=== PATIENT | male | born 1965 | race Caucasian/White ===

== ENCOUNTER 2017-07-05 21:21 | Emergency (ER) | payer SELFPAY ==
[~2017-07-05] VITALS: Ht 177.8 cm; Wt 75.0 kg
[2017-07-05 21:25] VITALS: BP 123/66; PULSE 93; RESP 18; TEMP 98.6; O2SAT 96
[2017-07-05] MEDS ORDERED: TETANUS/DIPHTHERIA TOXOID ADULT 0.5 ML VIAL IM ONE ×2 (22:15)
[2017-07-05] MEDS ORDERED: LIDOCAINE 1%/EPINEPHrine 1:100,000 SOLN 50 ML VIAL INFIL ONE ×2 (22:15)
--- NOTE | 2017-07-05 22:16 | PD ---
HPI Chief Complaint: Laceration/Skin Injury Time Seen by Provider: 22:01 Travel History International Travel<30 days: No Contact w/Intl Traveler<30days: No Traveled to known affect area: No History of Present Illness HPI 52-year-old white male presents to emergency department by POV for evaluation of lacerations to both knees. He was in the bathtub prior to arrival when a mirror fell off the wall onto his legs cutting his knees. Pain is mild. He denies any numbness or tingling. Symptoms are worsened with movement. No alleviating factors. Not up-to-date with immunizations. PFSH Past Medical History Narrative Medical Kidney disease Immunizations Current: Yes Tetanus Vaccination: > 5 Years Influenza Vaccination: Yes Past Surgical History Narrative Surgical NEPHRECTOMY Social History Alcohol Use: Yes (4-PACK DAILY) Tobacco Use: Yes (1/2 PPD) Substance Use: No Allergies-Medications (Allergen,Severity, Reaction): Coded Allergies: latex (Unverified Allergy, Intermediate, HIVES, 07/05/17) aspirin (Unverified Adverse Reaction, Intermediate, Cramping, 07/05/17) Reported Meds & Prescriptions Reported Meds & Active Scripts Active No Active Prescriptions or Reported Medications Review of Systems General / Constitutional: No: Fever Eyes: No: Visual changes HENT: No: Headaches Cardiovascular: No: Chest Pain or Discomfort Respiratory: No: Shortness of Breath Gastrointestinal: No: Abdominal Pain Genitourinary: No: Dysuria Musculoskeletal: Positive: Arthralgias, Pain, No: Myalgias, Limited ROM, Edema Skin: No Rash Neurologic: No: Weakness Psychiatric: No: Depression Endocrine: No: Polydipsia Hematologic/Lymphatic: No: Easy Bruising Physical Exam Narrative GENERAL: Well-developed, well-nourished in no apparent distress. Nontoxic appearing. HEAD: Normocephalic, atraumatic. EYES: Pupils equal round and reactive. Extraocular motions intact. No scleral icterus. No injection or drainage. ENT: Nose clear. Throat without erythema, tonsillar hypertrophy or exudate. Uvula midline. Airway patent. NECK: Trachea midline. Supple, nontender, moves head freely. No central bony tenderness or spasm. CARDIOVASCULAR: Regular rate and rhythm without murmurs, gallops, or rubs. RESPIRATORY: Clear to auscultation. Breath sounds equal bilaterally. No wheezes , rales, or rhonchi. GASTROINTESTINAL: Abdomen soft, non-tender, nondistended. No hepato-splenomegaly , or palpable masses. No guarding. EXTREMITIES: No clubbing, cyanosis, or edema. No joint tenderness. BACK: Nontender without deformity. No flank tenderness. Patient has lacerations over both patellas. They do not appear to be into the joint. Patient's neurovascular intact distally. NEUROLOGICAL: Awake, alert and oriented x 3 .Cranial nerves grossly intact. Motor and sensory grossly within normal limits. Normal speech. Data Data Last Documented VS Vital Signs Date Time Temp Pulse Resp B/P (MAP) Pulse Ox O2 Delivery O2 Flow Rate FiO2 07/05/17 21:25 98.6 93 18 123/66 (85) 96 Room Air Orders Orders Tetanus/Diphtheria Tox Adult (Tetanus/Di (07/05/17 22:15) Lidocai-Epi 1%-1:100,000 Inj (Xylocaine- (07/05/17 22:15) Ed Discharge Order (07/05/17 22:42) MDM Medical Decision Making Medical Screen Exam Complete: Yes Emergency Medical Condition: Yes Medical Record Reviewed: Yes Differential Diagnosis MDM: High Differential diagnoses: Fracture, sprain, strain, dislocation, contusion, neurovascular injury Narrative Course Patient's tetanus status updated. Patient's lacerations are closed with sutures. Procedures Procedure Narrative LACERATION LOCATION: Right knee LENGTH: 3 cm NUMBER OF STITCHES/MINNA: 4 REPAIR: The area of the laceration was prepped with Betadine and sterilely draped. The laceration was infiltrated with 1% lidocaine with epinephrine. The wound was copiously irrigated and explored without evidence of foreign body , tendon injury or neurovascular injury. The wound was closed using 4-0 proline. This was a simple single layer repair. A sterile dressing was applied. The patient was advised to keep the dressing clean and dry. Patient tolerated the procedure well. LACERATION LOCATION: Right knee LENGTH: 5 cm NUMBER OF STITCHES/MINNA: 9 REPAIR: The area of the laceration was prepped with Betadine and sterilely draped. The laceration was infiltrated with 1% lidocaine with epinephrine. The wound was copiously irrigated and explored without evidence of foreign body , tendon injury or neurovascular injury. The subcutaneous tissues are approximated using 4-0 Vicryl. The wound was closed using 4-0 proline. This was a simple single layer repair. A sterile dressing was applied. The patient was advised to keep the dressing clean and dry. Patient tolerated the procedure well. Diagnosis Primary Impression: bilateral knee lacerations Patient Instructions: General Instructions Departure Forms: Tests/Procedures, Work Release Special Instructions: No work 3 days. Additional Instructions: Rest. Elevation. Tylenol and Advil for pain. Daily wound care with soap, water, Neosporin. Sutures out in 12-14 days. Return to the ER if any problems. Med/Other Pt SpecificInfo: Wound Care Scripts No Active Prescriptions or Reported Meds Disposition: 01 DISCHARGE HOME Condition: Stable Alexi Kebede Jul 05, 2017 22:16
[2017-07-13] MEDS ORDERED: ULTR50TA5 PO ×2 (03:05)
[2017-07-13] MEDS ORDERED: CEPH-460 PO ×2 (03:05)
== END 2017-07-05 23:08 | disposition home or self-care (01) ==
LOC: NEPD 21:21
DX: S81.011A Laceration without foreign body, right knee, initial encounter (principal); S81.012A Laceration without foreign body, left knee, initial encounter; W20.8XXA Other cause of strike by thrown, projected or falling object, initial encounter; Y93.E1 Activity, personal bathing and showering
CPT/HCPCS: 12004

== ENCOUNTER 2017-07-13 01:50 | Emergency (ER) | payer SELFPAY ==
[2017-07-13 01:54] VITALS: BP 145/87; PULSE 85; RESP 16; TEMP 98.4; O2SAT 95
[2017-07-13] MEDS ORDERED: ONDANSETRON HCL 4 MG/2 ML VIAL IV PUSH ONE (02:15)
[2017-07-13] MEDS ORDERED: MORPHINE SULFATE 4 MG/ML INJ IV PUSH ONE (02:15)
[2017-07-13] MEDS ORDERED: ceFAZolin 2 GM PREMIX 50 ML IV ONE (02:30)
--- NOTE | 2017-07-13 02:58 | RADRPT ---
EXAM DATE/TIME: 07/13/2017 02:29 [facility] COMPARISON: No previous studies available for comparison. INDICATIONS : Patient had laceration to right knee one week ago from broken glass. Stiches were removed today just prior to imaging. New onset of pain and swelling today to anterior aspect of right knee. Evaluate for foreign body. MEDICAL HISTORY : None. SURGICAL HISTORY : None. ENCOUNTER: Initial ACUITY: 1 day PAIN SCORE: 10/10 LOCATION: Right Knee FINDINGS: Bones of the right knee are intact and normally aligned. No significant joint space narrowing seen. N o perceptible effusion. Marked prepatellar soft tissue swelling noted. There is some heterogeneous fluid in the prepatellar b ursa. I don't see a radiopaque foreign body. CONCLUSION: Radiographic findings would support prepatellar cellulitis and bursitis. No radiopaque foreign body. No acute bony or intra-articular abnormality demonstrated. Terrence Bailey MD on July 13, 2017 at 2:55 Board Certified Radiologist. This report was verified electronically.
[2017-07-13] MEDS ORDERED: TRAM50 PO (03:05)
[2017-07-13] MEDS ORDERED: CEPH-460 PO (03:05)
--- NOTE | 2017-07-13 03:08 | PD ---
HPI . Knee pain Chief Complaint: Skin Problem Time Seen by Provider: 02:04 Travel History International Travel<30 days: No Contact w/Intl Traveler<30days: No Traveled to known affect area: No History of Present Illness HPI This patient presents with a chief complaint of right knee pain. Onset was today. It has been getting progressively worse. He now rates the pain 10/10. The patient is status post laceration repair on 07/05. A mirror fell on his knees while he was in the bathtub. He states that the wounds were doing well until today. He doesn't really think that there is a retained foreign body. He denies any fever or any other systemic symptoms such as nausea. The wound has not been draining anything. He also has a laceration of the left knee which was sustained in the same incident. He reports no problems with that one. PFSH Past Medical History Medical History: Denies Significant Hx Immunizations Current: Yes Social History Alcohol Use: Yes (4-PACK DAILY) Tobacco Use: Yes (1/2 PPD) Substance Use: No Allergies-Medications (Allergen,Severity, Reaction): Coded Allergies: latex (Unverified Allergy, Intermediate, HIVES, 07/05/17) aspirin (Unverified Adverse Reaction, Intermediate, Cramping, 07/05/17) Reported Meds & Prescriptions Reported Meds & Active Scripts Active Ultram (Tramadol HCl) 50 Mg Tab 50 Mg PO Q4H PRN Keflex (Cephalexin) 500 Mg Cap 500 Mg PO Q8H Review of Systems Except as stated in HPI: all other systems reviewed are Neg General / Constitutional: No: Fever, Chills Gastrointestinal: No: Nausea, Vomiting Musculoskeletal: Positive: Pain (() Skin: Positive Change in Pigmentation Physical Exam Narrative GENERAL: Patient is awake and alert. He is moaning out. SKIN: The left knee laceration is well-healed with no drainage, redness, warmth or tenderness. The right knee laceration has some erythema and localized tenderness. No fluctuance or discharge. It is exquisitely tender. HEAD: Normocephalic/atraumatic. EYES: Pupils are equal. Extraocular movements are intact. NECK: Full range of motion without pain. CARDIOVASCULAR: Regular rate and rhythm. RESPIRATORY: Nonlabored respirations. MUSCULOSKELETAL: There is no knee effusion. There is no pain on movement of the patella. NEUROLOGICAL: Nonfocal. PSYCHIATRIC: Appropriate mood and affect. Data Data Last Documented VS Vital Signs Date Time Temp Pulse Resp B/P (MAP) Pulse Ox O2 Delivery O2 Flow Rate FiO2 07/13/17 03:13 07/13/17 01:54 98.4 85 16 95 Room Air Orders Orders Knee, Complete (4vws) (07/13/17 02:09) Complete Blood Count With Diff (07/13/17 02:09) Ed Poc Ultrasound (07/13/17 02:09) Morphine Inj (Morphine Inj) (07/13/17 02:15) Ondansetron Inj (Zofran Inj) (07/13/17 02:15) ^ Saline Lock (07/13/17 02:09) Cefazolin 2 Gm Premix (Ancef 2 Gm Premix (07/13/17 02:30) Labs Laboratory Tests Test 07/13/17 03:20 White Blood Count 10.2 TH/MM3 Red Blood Count 4.41 MIL/MM3 Hemoglobin 11.5 GM/DL Hematocrit 35.5 % Mean Corpuscular Volume 80.4 FL Mean Corpuscular Hemoglobin 26.1 PG Mean Corpuscular Hemoglobin Concent 32.5 % Red Cell Distribution Width 17.6 % Platelet Count 225 TH/MM3 Mean Platelet Volume 7.3 FL Neutrophils (%) (Auto) 67.8 % Lymphocytes (%) (Auto) 22.7 % Monocytes (%) (Auto) 5.9 % Eosinophils (%) (Auto) 2.9 % Basophils (%) (Auto) 0.7 % Neutrophils # (Auto) 6.9 TH/MM3 Lymphocytes # (Auto) 2.3 TH/MM3 Monocytes # (Auto) 0.6 TH/MM3 Eosinophils # (Auto) 0.3 TH/MM3 Basophils # (Auto) 0.1 TH/MM3 CBC Comment DIFF FINAL Differential Comment MDM Medical Decision Making Medical Screen Exam Complete: Yes Emergency Medical Condition: Yes Medical Record Reviewed: Yes (patient was seen here on 07/05 with bilateral knee lacerations. These were repaired. His tetanus was updated.) Differential Diagnosis My differential diagnosis includes but is not limited to localized wound infection, cellulitis, abscess Narrative Course This patient presents with the acute onset of pain with a one week old laceration of the right knee. No drainage. No fever. The sutures were removed. The wound did not dehisce. There was no drainage with suture removal. An x-ray was ordered to look for foreign body. I have also ordered a CBC. The patient's pain is being treated with morphine. He is being given Ancef for wound infection. X-ray>>Radiographic findings would support prepatellar cellulitis and bursitis. No radiopaque foreign body. No acute bony or intra-articular abnormality demonstrated. CBC Diagram 07/13/17 03:20 This patient will be discharged on Keflex. Procedures Procedure Narrative Emergency department soft-tissue/musculoskeletal ultrasound was performed with patient consent. Linear probe was used in the transverse and sagittal views in the area of interest without evidence of soft-tissue foreign bodies or abscess. Diagnosis Primary Impression: Wound infection Additional Impression: Prepatellar bursitis Qualified Codes: M70.41 - Prepatellar bursitis, right knee Patient Instructions: General Instructions, Wound Infection (DC) Med/Other Pt SpecificInfo: Prescription(s) given Scripts Tramadol (Ultram) 50 Mg Tab 50 MG PO Q4H Y for PAIN, #12 TAB 0 Refills Prov: Tessie Morales MD 07/13/17 Cephalexin (Keflex) 500 Mg Cap 500 MG PO Q8H for Infection, #30 CAP 0 Refills Prov: Tessie Morales MD 07/13/17 Disposition: 01 DISCHARGE HOME Condition: Stable Tessie Morales MD Jul 13, 2017 03:08
[2017-07-13 03:31] LABS: AUTOMATED NEUTROPHIL # 6.9 TH/MM3 (1.8-7.7); BASOPHIL # 0.1 TH/MM3 (0-0.2); BASOPHIL % 0.7 % (0.0-2.0); EOSINOPHIL # 0.3 TH/MM3 (0-0.4); EOSINOPHIL % 2.9 % (0.0-4.0); HEMATOCRIT 35.5 % (39.0-51.0); HEMO FLAGS DIFF FINAL; LYMPH % 22.7 % (9.0-44.0); LYMPHOCYTE # 2.3 TH/MM3 (1.0-4.8); MEAN CELL VOLUME 80.4 FL (80.0-100.0); MEAN CORPUSCULAR HEMOGLOBIN 26.1 PG (27.0-34.0); MEAN CORPUSCULAR HGB CONC 32.5 % (32.0-36.0); MONO % 5.9 % (0.0-8.0); NEUT % 67.8 % (16.0-70.0); PLATELET COUNT 225 TH/MM3 (150-450); RED BLOOD COUNT 4.41 MIL/MM3 (4.50-5.90); RED CELL DISTRIBUTION WIDTH 17.6 % (11.6-17.2); WHITE BLOOD COUNT 10.2 TH/MM3 (4.0-11.0)
[2017-07-16] MEDS ORDERED: BACT800T5 PO (10:17)
== END 2017-07-13 03:44 | disposition home or self-care (01) ==
LOC: NEPC 01:50
DX: M70.41 Prepatellar bursitis, right knee (principal); F17.200 Nicotine dependence, unspecified, uncomplicated; Z79.899 Other long term (current) drug therapy; Z88.6 Allergy status to analgesic agent; Z48.02 Encounter for removal of sutures
CPT/HCPCS: 73564; 85025; 96374; 96375; 99284; J0690; J2270; J2405

== ENCOUNTER 2017-07-14 15:37 | Inpatient (IN) | payer SELFPAY ==
[~2017-07-14] VITALS: Ht 177.8 cm; Wt 60.5 kg
[~2017-07-14 15:37] MED LIST: CEPH-460 PO; ULTR50TA5 PO
[2017-07-14 15:38] VITALS: BP 123/88; PULSE 71; RESP 16; TEMP 98.6; O2SAT 96
--- NOTE | 2017-07-14 18:21 | PD ---
HPI Chief Complaint: Skin Problem Time Seen by Provider: 18:08 Travel History International Travel<30 days: No Contact w/Intl Traveler<30days: No Traveled to known affect area: No History of Present Illness HPI 52-year-old male here for evaluation of right knee infection. On 07/05/31 the patient sustained bilateral knee lacerations from broken glass. Sutures were placed at that time in our emergency department. The patient returned on for possible infection to the right knee. At that time sutures were removed , and the patient was started on Keflex for cellulitis. He states that the area of erythema seems to be traveling up his right leg. He denies fevers or chills. He is having significant pain in his right knee which she describes as pressure, 8 out of 10, worse with movement and palpation, better with rest. PFSH Past Medical History Immunizations Current: Yes Social History Alcohol Use: Yes (4-PACK DAILY) Tobacco Use: Yes (1/2 PPD) Substance Use: No Allergies-Medications (Allergen,Severity, Reaction): Coded Allergies: latex (Unverified Allergy, Intermediate, HIVES, 07/14/17) aspirin (Unverified Adverse Reaction, Intermediate, Cramping, 07/14/17) Reported Meds & Prescriptions Reported Meds & Active Scripts Active Ultram (Tramadol HCl) 50 Mg Tab 50 Mg PO Q4H PRN Keflex (Cephalexin) 500 Mg Cap 500 Mg PO Q8H Review of Systems Except as stated in HPI: all other systems reviewed are Neg Physical Exam Narrative GENERAL: Well-developed, well-nourished, comfortable, no apparent distress. SKIN: Right anterior/medial knee with laceration that is healing with surrounding warmth and erythema with mild induration, no fluctuance with significant area of erythema traveling up the medial thigh. There is no crepitus. This area was evaluated using a linear ultrasound probe and shows cobblestoning which is consistent with cellulitis. No drainable fluid collections seen. No significant joint effusion seen in the right knee. HEAD: Atraumatic. Normocephalic. EYES: Pupils equal and round. No scleral icterus. No injection or drainage. ENT: No nasal bleeding or discharge. Mucous membranes pink and moist. NECK: Trachea midline. No JVD. CARDIOVASCULAR: Regular rate and rhythm. No murmur. Bilateral dorsalis pedis pulses are brisk and equal. RESPIRATORY: No accessory muscle use. Clear to auscultation. Breath sounds equal bilaterally. MUSCULOSKELETAL: Skin exam as above. Patient is able to flex his knee to 45 before he begins to feel pain over his anterior knee. Bilateral calves are supple and nontender. NEUROLOGICAL: Awake and alert. No obvious cranial nerve deficits. Motor grossly within normal limits. Normal speech. PSYCHIATRIC: Appropriate mood and affect; insight and judgment normal. Data Data Last Documented VS Vital Signs Date Time Temp Pulse Resp B/P (MAP) Pulse Ox O2 Delivery O2 Flow Rate FiO2 07/14/17 15:38 98.6 71 16 123/88 (100) 96 Orders Orders Complete Blood Count With Diff (07/14/17 18:16) Comprehensive Metabolic Panel (07/14/17 18:16) Prothrombin Time / Inr (Pt) (07/14/17 18:16) Act Partial Throm Time (Ptt) (07/14/17 18:16) Iv Access Insert/Monitor (07/14/17 18:16) Ecg Monitoring (07/14/17 18:16) Oximetry (07/14/17 18:16) Sodium Chloride 0.9% Flush (Ns Flush) (07/14/17 18:30) Blood Culture (07/14/17 18:16) Vancomycin Inj (Vancomycin Inj) (07/14/17 18:30) Morphine Inj (Morphine Inj) (07/14/17 18:30) Knee, Complete (4vws) (07/14/17 ) Westergren Sedimentation Rate (07/14/17 18:21) Diphenhydramine Inj (Benadryl Inj) (07/14/17 19:00) Labs Laboratory Tests Test 07/14/17 18:30 White Blood Count 9.6 TH/MM3 Red Blood Count 4.22 MIL/MM3 Hemoglobin 11.4 GM/DL Hematocrit 33.6 % Mean Corpuscular Volume 79.6 FL Mean Corpuscular Hemoglobin 26.9 PG Mean Corpuscular Hemoglobin Concent 33.8 % Red Cell Distribution Width 17.5 % Platelet Count 219 TH/MM3 Mean Platelet Volume 7.3 FL Neutrophils (%) (Auto) 69.0 % Lymphocytes (%) (Auto) 21.5 % Monocytes (%) (Auto) 6.8 % Eosinophils (%) (Auto) 2.2 % Basophils (%) (Auto) 0.5 % Neutrophils # (Auto) 6.6 TH/MM3 Lymphocytes # (Auto) 2.1 TH/MM3 Monocytes # (Auto) 0.7 TH/MM3 Eosinophils # (Auto) 0.2 TH/MM3 Basophils # (Auto) 0.1 TH/MM3 CBC Comment DIFF FINAL Differential Comment Prothrombin Time 9.7 SEC Prothromb Time International Ratio 0.9 RATIO Activated Partial Thromboplast Time 27.1 SEC Blood Urea Nitrogen 6 MG/DL Creatinine 0.77 MG/DL Random Glucose 81 MG/DL Total Protein 7.8 GM/DL Albumin 3.6 GM/DL Calcium Level 8.7 MG/DL Alkaline Phosphatase 84 U/L Aspartate Amino Transf (AST/SGOT) 20 U/L Alanine Aminotransferase (ALT/SGPT) 25 U/L Total Bilirubin 0.3 MG/DL Sodium Level 133 MEQ/L Potassium Level 3.9 MEQ/L Chloride Level 98 MEQ/L Carbon Dioxide Level 27.4 MEQ/L Anion Gap 8 MEQ/L Estimat Glomerular Filtration Rate 107 ML/MIN [facility] Medical Decision Making Medical Screen Exam Complete: Yes Emergency Medical Condition: Yes Differential Diagnosis Cellulitis, septic arthritis less likely, necrotizing fasciitis unlikely, lymphangitis, DVT unlikely Narrative Course Shortly after IV vancomycin was started the patient developed a red man syndrome with some erythema to his anterior neck and face. He denies respiratory difficulty. No tongue or lip swelling. Vancomycin infusion held, the patient was given Benadryl. When his symptoms resolve, the vancomycin infusion will be restarted at a slower rate. Vital signs reviewed and are within normal limits. CBC: WBC 9.6, hemoglobin 11.4, hematocrit 33.6, platelets 219. CMP is essentially unremarkable. Right knee x-ray interpreted by me shows no free air, no foreign body. The patient was given a dose of IV morphine as well as IV vancomycin. He is able to flex his knee to about 45 before he starts feeling a stretching/pain sensation in his anterior knee. Physical exam is not consistent with a septic arthritis, and is more consistent with cellulitis/infected bursitis. He also has signs of lymphangitis up the right leg. There is no crepitus on exam. Given failure of outpatient therapy, the patient be admitted for further antibiotic therapy. He is amenable to this plan. Case discussed with hospitalist Dr. Jesus who will admit the patient to her service. Diagnosis Primary Impression: Cellulitis of right knee Additional Impression: Lymphangitis Admitting Information Admitting Physician Requests: Observation Sina Hart MD Jul 14, 2017 18:21
[2017-07-14] MEDS ORDERED: MORPHINE SULFATE 4 MG/ML INJ IV PUSH ONE ×2 (18:30)
[2017-07-14] MEDS ORDERED: SODIUM CHLORIDE 0.9% FLUSH 10 ML FLUSH IV FLUSH PRN ×2 (18:30)
[2017-07-14] MEDS ORDERED: VANCOMYCIN INJ 1,000 MG in SODIUM CHLOR 0.9% 250 ML INJ 250 ML IV ONE ×4 (18:30)
[2017-07-14] MEDS ORDERED: diphenhydrAMINE HCL 50 MG/ML VIAL IV PUSH ONE ×2 (19:00)
[2017-07-14 19:15] LABS: AUTOMATED NEUTROPHIL # 6.6 TH/MM3 (1.8-7.7); BASOPHIL # 0.1 TH/MM3 (0-0.2); BASOPHIL % 0.5 % (0.0-2.0); EOSINOPHIL # 0.2 TH/MM3 (0-0.4); EOSINOPHIL % 2.2 % (0.0-4.0); HEMATOCRIT 33.6 % (39.0-51.0); HEMOGLOBIN 11.4 GM/DL (13.0-17.0); LYMPH % 21.5 % (9.0-44.0); LYMPHOCYTE # 2.1 TH/MM3 (1.0-4.8); MEAN CELL VOLUME 79.6 FL (80.0-100.0); MEAN CORPUSCULAR HEMOGLOBIN 26.9 PG (27.0-34.0); MEAN CORPUSCULAR HGB CONC 33.8 % (32.0-36.0); MEAN PLATELET VOLUME 7.3 FL (7.0-11.0); MONO % 6.8 % (0.0-8.0); MONOCYTE # 0.7 TH/MM3 (0-0.9); PLATELET COUNT 219 TH/MM3 (150-450); RED BLOOD COUNT 4.22 MIL/MM3 (4.50-5.90); RED CELL DISTRIBUTION WIDTH 17.5 % (11.6-17.2); WHITE BLOOD COUNT 9.6 TH/MM3 (4.0-11.0)
[2017-07-14 19:25] LABS: INTERNATIONAL NORMALIZED RATIO 0.9 RATIO; PROTHROMBIN TIME - PATIENT 9.7 SEC (9.8-11.6)
[2017-07-14 19:46] LABS: ALBUMIN 3.6 GM/DL (3.4-5.0); ALT (GPT) 25 U/L (12-78); AST (GOT) 20 U/L (15-37); BICARBONATE 27.4 MEQ/L (21.0-32.0); BLOOD UREA NITROGEN 6 MG/DL (7-18); CALCIUM 8.7 MG/DL (8.5-10.1); CHLORIDE 98 MEQ/L (98-107); CREATININE 0.77 MG/DL (0.60-1.30); GLOMERULAR FILTRATION RATE 107 ML/MIN (>89); GLUCOSE,RANDOM 81 MG/DL (74-106); SODIUM (NA) 133 MEQ/L (136-145)
[2017-07-14 19:48] LABS: ALKALINE PHOSPHATASE 84 U/L (45-117); TOTAL BILIRUBIN ADULT 0.3 MG/DL (0.2-1.0); TOTAL PROTEIN 7.8 GM/DL (6.4-8.2)
[2017-07-14] MEDS ORDERED: ACETAMINOPHEN 325 MG TAB PO PRN ×2 (20:45)
[2017-07-14] MEDS ORDERED: ONDANSETRON HCL 4 MG/2 ML VIAL IVP PRN ×2 (20:45)
[2017-07-14] MEDS ORDERED: NALOXONE HCL 0.4 MG/ML AMP IV PUSH PRN ×2 (20:45)
--- NOTE | 2017-07-14 21:37 | RADRPT ---
EXAM DATE/TIME: 07/14/2017 19:36 [facility] COMPARISON: KNEE RIGHT COMPLETE (4VWS), July 13, 2017, 2:29. INDICATIONS : Right knee pain, Redness and swelling MEDICAL HISTORY : None. SURGICAL HISTORY : None. ENCOUNTER: Initial ACUITY: 3 days PAIN SCORE: 7/10 LOCATION: Right knee FINDINGS: No fracture or dislocation. Soft tissue swelling anterior to the patella and infrapatellar region aga in noted. No effusion. Normal bone density. CONCLUSION: Soft tissue swelling again seen. Jude Wyatt MD on July 14, 2017 at 20:06 Board Certified Radiologist. This report was verified electronically.
[2017-07-14 21:48] VITALS: BP 124/75; PULSE 74; RESP 16; O2SAT 96
[2017-07-14] MEDS: SODIUM CHLORIDE 0.9% FLUSH 10 ML FLUSH IV FLUSH SCH ×2 (22:27)
[2017-07-14] MEDS: ENOXAPARIN SODIUM 40 MG/0.4 ML SYRINGE SQ SCH ×2 (22:28)
[2017-07-14] MEDS: MORPHINE SULFATE 2 MG/ML INJ IV PUSH PRN ×2 (22:28)
[2017-07-14] MEDS ORDERED: HALOPERIDOL LACTATE 5 MG/ML AMP IM PRN ×2 (22:30)
[2017-07-14] MEDS ORDERED: FLUMAZENIL 0.5 MG/5 ML VIAL IV PUSH PRN ×2 (22:30)
[2017-07-14] MEDS ORDERED: LORazepam 2 MG TAB PO PRN ×2 (22:30)
[2017-07-14] MEDS ORDERED: Vancomycin Consult Pharmacy 1 EA OTHER SCH ×2 (22:30)
[2017-07-14] MEDS ORDERED: LORazepam 1 MG TAB PO PRN ×2 (22:30)
[2017-07-14] MEDS ORDERED: LORazepam 2 MG/ML VIAL IV PUSH PRN ×8 (22:30)
--- NOTE | 2017-07-14 22:33 | HHI.HP ---
[facility] No Primary Care Physician Admission Diagnosis right knee cellulitis failed outpatient therapy, lymphangitis Diagnoses: Travel History International Travel<30 Days: No Contact w/Intl Traveler <30 Da: No Traveled to Known Affected Are: No History of Present Illness 52-year-old male presents to the emergency department with worsening right knee erythema and pain. 2 weeks ago, the patient had a mere fall on him and his knees were sliced bilaterally with the glass. The patient sought medical treatment where his knees were sutured and he was discharged to home. 2 days ago, the patient returned to the emergency department for an erythematous and tender right knee. He was given a prescription for Keflex and discharged to home. Despite compliance with the medication, the erythema of the patient's right knee continued to spread up his 5 and he became more tender. He has a very difficult time flexing the right knee and can only flex to approximately 30 . There is no associated fluctuance however the knee joint is swollen. He does not have leukocytosis and has been afebrile. 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 Dad with alcohol related liver failure. Social History Smokes one pack per day 35 years. Denies marijuana or illicit drugs. Drinks approximately one 12 pack per day Physical Exam Vital Signs Vital Signs Date Time Temp Pulse Resp B/P (MAP) Pulse Ox O2 Delivery O2 Flow Rate FiO2 07/14/17 21:54 07/14/17 21:48 74 16 124/75 (91) 96 Room Air 07/14/17 15:38 98.6 71 16 123/88 (100) 96 Physical Exam GENERAL: White male lying in bed SKIN: Erythema of the right knee that extends to the mid thigh. Right knee swollen without fluctuance. HEAD: Atraumatic. Normocephalic. No temporal or scalp tenderness. EYES: Pupils equal round and reactive. Extraocular motions intact. No scleral icterus. No injection or drainage. ENT: Nose without bleeding, purulent drainage or septal hematoma. Throat without erythema, tonsillar hypertrophy or exudate. Uvula midline. Airway patent. NECK: Trachea midline. No JVD or lymphadenopathy. Supple, nontender, no meningeal signs. CARDIOVASCULAR: Regular rate and rhythm without murmurs, gallops, or rubs. RESPIRATORY: Clear to auscultation. Breath sounds equal bilaterally. No wheezes , rales, or rhonchi. GASTROINTESTINAL: Abdomen soft, non-tender, nondistended. No hepato-splenomegaly , or palpable masses. No guarding. MUSCULOSKELETAL: Extremities without clubbing, cyanosis. Edema right knee with limited range of motion to 30 flexion. NEUROLOGICAL: Awake and alert. Cranial nerves II through XII intact. Motor and sensory grossly within normal limits. Normal speech. Laboratory Laboratory Tests Test 07/14/17 18:30 White Blood Count 9.6 Red Blood Count 4.22 Hemoglobin 11.4 Hematocrit 33.6 Mean Corpuscular Volume 79.6 Mean Corpuscular Hemoglobin 26.9 Mean Corpuscular Hemoglobin Concent 33.8 Red Cell Distribution Width 17.5 Platelet Count 219 Mean Platelet Volume 7.3 Neutrophils (%) (Auto) 69.0 Lymphocytes (%) (Auto) 21.5 Monocytes (%) (Auto) 6.8 Eosinophils (%) (Auto) 2.2 Basophils (%) (Auto) 0.5 Neutrophils # (Auto) 6.6 Lymphocytes # (Auto) 2.1 Monocytes # (Auto) 0.7 Eosinophils # (Auto) 0.2 Basophils # (Auto) 0.1 CBC Comment DIFF FINAL Differential Comment Erythrocyte Sedimentation Rate 42 Prothrombin Time 9.7 Prothromb Time International Ratio 0.9 Activated Partial Thromboplast Time 27.1 Blood Urea Nitrogen 6 Creatinine 0.77 Random Glucose 81 Total Protein 7.8 Albumin 3.6 Calcium Level 8.7 Alkaline Phosphatase 84 Aspartate Amino Transf (AST/SGOT) 20 Alanine Aminotransferase (ALT/SGPT) 25 Total Bilirubin 0.3 Sodium Level 133 Potassium Level 3.9 Chloride Level 98 Carbon Dioxide Level 27.4 Anion Gap 8 Estimat Glomerular Filtration Rate 107 Date/Time Source Procedure Growth Status 07/14/17 18:40 Blood Peripheral Aerobic Blood Culture Pending Received 07/14/17 18:40 Blood Peripheral Anaerobic Blood Culture Pending Received Result Diagram: 07/14/17182907/14/171829 Caprini VTE Risk Assessment Caprini VTE Risk Assessment: No/Low Risk (score <= 1) Caprini Risk Assessment Model Point Value = 1 Point Value = 2 Point Value = 3 Point Value = 5 Age 41-60 Minor surgery BMI > 25 kg/m2 Swollen legs Varicose veins or History of unexplained or recurrent spontaneous Oral contraceptives or hormone replacement Sepsis (< 1 month) Serious lung disease, including pneumonia (< 1 month) Abnormal pulmonary function Acute myocardial infarction Congestive heart failure (< 1 month) History of inflammatory bowel disease Medical patient at bed rest Age 61-74 Arthroscopic surgery Major open surgery (> 45 min) Laparoscopic surgery (> 45 min) Malignancy Confined to bed (> 72 hours) Immobilizing plaster cast Central venous access Age >= 75 History of VTE Family history of VTE Factor V Leiden Prothrombin [id number] Lupus anticoagulant Anticardiolipin antibodies Elevated serum homocysteine Heparin-induced thrombocytopenia Other congenital or acquired thrombophilia Stroke (< 1 month) Elective arthroplasty Hip, pelvis, or leg fracture Acute spinal cord injury (< 1 month) Prophylaxis Regimen Total Risk Factor Score Risk Level Prophylaxis Regimen 0-1 Low Early ambulation 2 Moderate Order ONE of the following: *Sequential Compression Device (SCD) *Heparin 5000 units SQ BID 3-4 Higher Order ONE of the following medications: *Heparin 5000 units SQ TID *Enoxaparin/Lovenox 40 mg SQ daily (WT < 150 kg, CrCl > 30 mL/min) *Enoxaparin/Lovenox 30 mg SQ daily (WT < 150 kg, CrCl > 10-29 mL/min) *Enoxaparin/Lovenox 30 mg SQ BID (WT < 150 kg, CrCl > 30 mL/min) AND/OR *Sequential Compression Device (SCD) 5 or more Highest Order ONE of the following medications: *Heparin 5000 units SQ TID (Preferred with Epidurals) *Enoxaparin/Lovenox 40 mg SQ daily (WT < 150 kg, CrCl > 30 mL/min) *Enoxaparin/Lovenox 30 mg SQ daily (WT < 150 kg, CrCl > 10-29 mL/min) *Enoxaparin/Lovenox 30 mg SQ BID (WT < 150 kg, CrCl > 30 mL/min) AND *Sequential Compression Device (SCD) Assessment and Plan Assessment and Plan 52-year-old male with right lower extremity cellulitis admitted after failing outpatient treatment with Keflex. Patient has a history of significant alcohol use. 1. Right lower extremity cellulitis/concern for septic joint Elevated ESR, CRP pending No leukocytosis Blood cultures pending Patient started on vancomycin, continue Orthopedic surgery consulted, appreciate recommendations and assistance 2. Alcohol abuse [facility] protocol Thiamine/multivitamins Monitor for signs of DTs FEN Heart healthy diet Electrolytes: Replete when necessary Holding pharmacologic anticoagulation pending orthopedic surgery recommendations Physician Certification 2 Midnight Certification Type: Admission for Inpatient Services Order for Inpatient Services The services are ordered in accordance with Medicare regulations or non- Medicare payer requirements, as applicable. In the case of services not specified as inpatient-only, they are appropriately provided as inpatient services in accordance with the 2-midnight benchmark. Estimated LOS (days): 2 2 days is the estimated time the patient will need to remain in the hospital, assuming treatment plan goals are met and no additional complications. Post-Hospital Plan: Not yet determined Jen Jesus MD Jul 14, 2017 22:33
[2017-07-14 22:39] VITALS: BP 122/85; PULSE 72; RESP 18; TEMP 98.1; O2SAT 95
[2017-07-14] MEDS: MULTIVITAMIN INJ 10 ML, FOLIC ACID INJ 1 MG in SODIUM CHLORID 0.9% 500 ML INJ 500 ML IV SCH ×6 (23:33)
[2017-07-14] MEDS: THIAMINE INJ 100 MG in SODIUM CHLORIDE 0.9% INJ 100 ML IV SCH ×4 (23:33)
[2017-07-14] MEDS: SODIUM CHLORIDE 0.9% FLUSH 10 ML FLUSH IV FLUSH PRN ×2 (23:40)
[2017-07-15] MEDS: MORPHINE SULFATE 2 MG/ML INJ IV PUSH PRN ×6 (03:05→10:17)
[2017-07-15] MEDS: SODIUM CHLORIDE 0.9% FLUSH 10 ML FLUSH IV FLUSH PRN ×4 (03:09→06:38)
[2017-07-15 05:31] VITALS: BP 128/78; PULSE 65; RESP 18; TEMP 98.1; O2SAT 97
[2017-07-15] MEDS: VANCOMYCIN INJ 1,250 MG in SODIUM CHLOR 0.9% 250 ML INJ 250 ML IV SCH ×8 (06:29→15:24)
[2017-07-15] MEDS ORDERED: VANCOMYCIN INJ 1,000 MG in SODIUM CHLOR 0.9% 250 ML INJ 250 ML IV SCH ×4 (06:30)
[2017-07-15 08:11] VITALS: BP 122/73; PULSE 71; RESP 20; TEMP 98.7; O2SAT 95
[2017-07-15] MEDS: SODIUM CHLORIDE 0.9% FLUSH 10 ML FLUSH IV FLUSH SCH ×4 (09:00→21:57)
[2017-07-15 09:42] LABS: AUTOMATED NEUTROPHIL # 6.1 TH/MM3 (1.8-7.7); BASOPHIL # 0.1 TH/MM3 (0-0.2); BASOPHIL % 0.7 % (0.0-2.0); EOSINOPHIL # 0.2 TH/MM3 (0-0.4); EOSINOPHIL % 2.8 % (0.0-4.0); HEMATOCRIT 35.9 % (39.0-51.0); HEMOGLOBIN 11.6 GM/DL (13.0-17.0); LYMPH % 20.9 % (9.0-44.0); LYMPHOCYTE # 1.8 TH/MM3 (1.0-4.8); MEAN CORPUSCULAR HEMOGLOBIN 26.4 PG (27.0-34.0); MEAN CORPUSCULAR HGB CONC 32.2 % (32.0-36.0); MEAN PLATELET VOLUME 7.5 FL (7.0-11.0); MONOCYTE # 0.5 TH/MM3 (0-0.9); NEUT % 69.6 % (16.0-70.0); PLATELET COUNT 225 TH/MM3 (150-450); RED BLOOD COUNT 4.38 MIL/MM3 (4.50-5.90); RED CELL DISTRIBUTION WIDTH 17.5 % (11.6-17.2); WHITE BLOOD COUNT 8.8 TH/MM3 (4.0-11.0)
[2017-07-15 10:48] LABS: BICARBONATE 27.6 MEQ/L (21.0-32.0); CREATININE 0.78 MG/DL (0.60-1.30)
--- NOTE | 2017-07-15 11:51 | MB ---
cc: VALERY BOTELLO M.D. DATE OF CONSULTATION: 07/15/2017 REASON FOR CONSULTATION: Right knee possible septic prepatellar bursitis. HISTORY The patient is a 52-year-old man who said about 2 weeks ago he had a fall and cut his knee on some glass. He said he had medical treatment where the knee was sutured, was discharged to home. The patient states that he was given a prescription for Keflex after presenting to the emergency room with a significant redness. The patient said that the redness has spread up to the thigh and the knee became extremely difficult to move. The patient was admitted for intravenous antibiotics and possible septic knee. The undersigned was consulted. The patient says that the knee is rapidly improved since he has been admitted to the hospital and placed on intravenous antibiotics. He says that the swelling has come down quite a bit and the redness has improved significantly. PAST MEDICAL HISTORY: Positive for having a single kidney due to congenital malformation. PAST SURGICAL HISTORY Status post nephrectomy. Bowel resection. MEDICATIONS: Ultram. Keflex. ALLERGIES LATEX AN [facility]IR[facility] FAMILY HISTORY Noncontributory. SOCIAL HISTORY The patient smokes one pack per day for 35 years. He drinks 12 pack per day. REVIEW OF SYSTEMS: A 12 point review of systems is negative, except as noted in the history of present illness. Note that he did not have any specific fevers or chills. PHYSICAL EXAMINATION: The patient's temperature is 98.7, pulse 71, respirations 20, blood pressure 122/73. GENERAL: The patient is awake, alert and oriented x3. He is anxious. He is thin. HEAD: Head is atraumatic. NECK: Neck is supple. Oropharynx is moist. EYES: Extraocular movements intact. HEART: Regular rate and rhythm. LUNGS: Clear to auscultation bilaterally. ABDOMEN: Soft. Nontender, nondistended. BACK: Shows no CVA tenderness. EXTREMITIES: Examination of the right lower extremity shows that he has a laceration on the anterior aspect of the knee towards the medial side which is well-healed. There is just a little bit of surrounding hyperemia around this laceration. It is healing well with no drainage. No purulence. There is some fullness to the anterior aspect of the knee but not specifically definite fluctuance that could be aspirated. There is no joint effusion. There is no cellulitis surrounding the thigh or other parts of the knee. The knee range of motion is only mildly limited. There is no swelling down by the calf. He has 2+ dorsalis pedis pulse. He moves the toes well. LABORATORY STUDIES: Laboratory studies shows white cell count of 9.6, hematocrit 33.6, platelets 219, neutrophils are 69% without a shift. ESR 42. Coagulation: INR 0.9, creatinine 0.77, CRP is 11. IMAGING STUDIES Reviewed the images and the report shows some soft tissue swelling at the anterior aspect of the knee but no degenerative changes noted about the knee. IMPRESSION: Right knee cellulitis status post laceration of the knee two weeks ago. DECISION-MAKING: It appears the patient's laceration is healing very well. He seems to have had a very significant cellulitis which did not respond to Keflex. However, once he was given intravenous antibiotics here in the hospital, he says the knee is rapidly improving. When I looked at the knee, I do not see any fluctuance or purulence at this point. I do not feel that surgical management is indicated especially given his rapid progression of improvement. The patient seems quite anxious to leave the hospital. I explained him that he leaves the hospital prematurely he could have a significant recurrence of this infection which could ultimately to infection seated deep in the bone which could lead to chronic infection which can be extremely difficult to eradicate. I have recommended very much for the patient to follow the course of medical management with the antibiotics per the medical physician. He may also need to have an Infectious Disease specialist. We will follow the knee. If he does have significant recurrence, then surgical management could still be considered. All questions have been answered. Valery Botello MD /SHAY /10:29 AM /12:40 PM
[2017-07-15 12:13] VITALS: BP 148/82; PULSE 77; RESP 20; TEMP 98; O2SAT 96
[2017-07-15] MEDS ORDERED: traMADol HCL 50 MG TAB PO PRN ×2 (12:30)
--- NOTE | 2017-07-15 12:33 | HHI.PR ---
Subjective Remarks Follow-up visit for 52 year old male with complaints of a right swollen knee. Only PMH reported is of one kidney due to congenital malformation. He repots presenting to the ED last with lacerations on bilateral knees as a result of a bathroom mirror falling on him. Lacerations were repaired, however he began to experience swelling for the right knee. Returned to the ED and provided with oral Keflex and pain medication and discharged home. He reports that despite taking medications swelling, pain and redness of knee continued to worsen and spread to thigh and ankle so he returned to ED. States that after starting antibiotics swelling and redness has improved very much. He denies any fever, chills, SOB, chest pain, nausea, vomiting, or diarrhea. Objective Vitals Vital Signs Date Time Temp Pulse Resp B/P (MAP) Pulse Ox O2 Delivery O2 Flow Rate FiO2 07/15/17 08:11 98.7 71 20 122/73 (89) 95 07/15/17 05:31 98.1 65 18 128/78 (95) 97 07/14/17 22:39 98.1 72 18 122/85 (97) 95 07/14/17 21:54 07/14/17 21:48 74 16 124/75 (91) 96 Room Air 07/14/17 15:38 98.6 71 16 123/88 (100) 96 I/O 07/14/17 07/14/17 07/14/17 07/15/17 07/15/17 07/15/17 07:00 15:00 23:00 07:00 15:00 23:00 Intake Total 250 ml 611 ml Balance 250 ml 611 ml Intake IV Total 250 ml 611 ml Result Diagram: 07/15/17 0834 07/15/17 0834 Imaging Last Impressions Knee X-Ray 07/14/17 0000 Signed Impressions: Service Date/Time: Friday, July 14, 2017 19:36 - CONCLUSION: Soft tissue swelling again seen. Jude Wyatt MD Objective Remarks GENERAL: White male lying in bed, in no acute distress. SKIN: Right knee swollen without fluctuance, well approximated laceration on left and right knees. Right knee laceration with mild erythema, no discharge, mild warmth to touch. HEAD: Atraumatic. Normocephalic. No temporal or scalp tenderness. EYES: Pupils equal round and reactive. ENT: Nose without bleeding, purulent drainage or septal hematoma. NECK: Trachea midline. CARDIOVASCULAR: Regular rate and rhythm without murmurs, gallops, or rubs. RESPIRATORY: Clear to auscultation. Breath sounds equal bilaterally. No wheezes , rales, or rhonchi. GASTROINTESTINAL: Abdomen soft, non-tender, nondistended. No guarding. MUSCULOSKELETAL: Extremities without clubbing, cyanosis. Edema right knee with limited range of motion to 40 flexion, patient is able to ambulate without difficulties. NEUROLOGICAL: Awake and alert. Motor and sensory grossly within normal limits. Normal speech. A/P Problem List: (1) Cellulitis of right knee ICD Code: L03.115 - Cellulitis of right lower limb Status: Acute Assessment and Plan 52-year-old male with right lower extremity cellulitis admitted after failing outpatient treatment with Keflex. Patient has a history of significant alcohol use. Right lower extremity cellulitis/concern for septic joint - Elevated ESR and CRP - No leukocytosis, no reported fever or chills - Blood cultures, no growth after one day - Patient started on vancomycin, continue - Orthopedic surgery consulted and saw patient this morning. - Ortho. does not believe this is septic arthritis but more cellulitis, no surgical intervention at this moment, appreciate recommendations and assistance. - Pain control Ultram and PRN Toradol Alcohol abuse - [facility] protocol - Thiamine/multivitamins - Monitor for signs of DTs VTE - Lovenox - Ambulating in room Discharge Planning Patient will be going home when discharged. Attending Statement The exam, history, and the medical decision-making described in the above note were completed with the assistance of the mid-level provider. I reviewed and agree with the findings presented. I attest that I had a [id number] encounter with the patient on the same day, and personally performed and documented my assessment and findings in the medical record. Patient right leg cellulitis had drastic improvement. Patient has also improved but he complains that pain is uncontrolled. Otherwise patient is afebrile. Gen NAD and sitting very comfortably in bed. Left leg minimal cellulitis on the right anterior knee at the wound site. No drainage noted. Patient has full range of motion of the right knee with pain at the end of range of motion. Left leg cellulitis Elmo outpatient therapy Drastic improvement of cellulitis with vancomycin. Will give 1 more day of vancomycin possible discharge tomorrow. Will add Toradol for pain control. Restart tramadol urine for pain. Anticipate discharge tomorrow. Arthur Elaine Jul 15, 2017 12:33 Yazmin Viera MD Jul 15, 2017 14:30
[2017-07-15] MEDS ORDERED: KETOROLAC TROMETHAMINE 10 MG TAB PO PRN ×2 (12:45)
[2017-07-15 17:06] VITALS: BP 119/82; PULSE 84; RESP 20; TEMP 98; O2SAT 96
[2017-07-15 20:00] VITALS: BP 119/77; PULSE 77; RESP 18; TEMP 98.4; O2SAT 96
[2017-07-15] MEDS: ENOXAPARIN SODIUM 40 MG/0.4 ML SYRINGE SQ SCH ×2 (21:56)
[2017-07-15] MEDS: MULTIVITAMIN INJ 10 ML, FOLIC ACID INJ 1 MG in SODIUM CHLORID 0.9% 500 ML INJ 500 ML IV SCH ×6 (21:56)
[2017-07-15] MEDS: THIAMINE INJ 100 MG in SODIUM CHLORIDE 0.9% INJ 100 ML IV SCH ×4 (22:04)
[2017-07-16 04:00] VITALS: BP 113/72; PULSE 76; RESP 18; TEMP 97.8; O2SAT 97
[2017-07-16] MEDS ORDERED: PHARMACY ORDERED LAB ONE ×2 (05:45)
[2017-07-16] MEDS: VANCOMYCIN INJ 1,250 MG in SODIUM CHLOR 0.9% 250 ML INJ 250 ML IV SCH ×4 (06:04)
[2017-07-16 07:02] LABS: BICARBONATE 26.2 MEQ/L (21.0-32.0); CALCIUM 8.7 MG/DL (8.5-10.1); CREATININE 0.82 MG/DL (0.60-1.30)
[2017-07-16 08:03] VITALS: BP 122/78; PULSE 88; RESP 20; TEMP 97.6; O2SAT 97
[2017-07-16] MEDS: SODIUM CHLORIDE 0.9% FLUSH 10 ML FLUSH IV FLUSH SCH ×2 (08:27)
[2017-07-16] MEDS ORDERED: BACT800T5 PO ×2 (10:17)
--- NOTE | 2017-07-16 10:18 | HHI.PR ---
Subjective Remarks Follow-up visit right knee cellulitis, right leg cellulitis. Patient seen and examined today sitting in a chair. States he has significantly improved, able To walk and ambulate in the room without using any devices. Patient states that when he came in initially he was using the crutches and the leg erythema is from the ankle all the way to his thigh. Now he reports it's only in the small incision site into his right knee. Patient states he is ready to be discharged home requesting to be discharged home today. Denies pain and discomfort. Denies SOB/ dyspnea. Denies chest pain, palpitations, headaches, dizziness. Denies fevers, chills, n/v/d. Objective Vitals Vital Signs Date Time Temp Pulse Resp B/P (MAP) Pulse Ox O2 Delivery O2 Flow Rate FiO2 07/16/17 08:03 97.6 88 20 122/78 (93) 97 07/16/17 04:00 97.8 76 18 113/72 (86) 97 07/15/17 20:00 98.4 77 18 119/77 (91) 96 07/15/17 17:06 98.0 84 20 119/82 (94) 96 07/15/17 12:13 98.0 77 20 148/82 (104) 96 I/O 07/15/17 07/15/17 07/15/17 07/16/17 07/16/17 07/16/17 07:00 15:00 23:00 07:00 15:00 23:00 Intake Total 611 ml 720 ml 611.2 ml Balance 611 ml 720 ml 611.2 ml Intake Oral 720 ml IV Total 611 ml 611.2 ml # Voids 3 3 # Bowel Movements 1 1 Result Diagram: 07/15/17 0834 07/16/17 0545 Imaging Last Impressions Knee X-Ray 07/14/17 0000 Signed Impressions: Service Date/Time: Friday, July 14, 2017 19:36 - CONCLUSION: Soft tissue swelling again seen. Jude Wyatt MD Objective Remarks GENERAL: This is a well-nourished, well-developed patient, in no apparent distress. SKIN: Warm and dry. HEENT: Normocephalic. Pupils equal round and reactive. Nose without bleeding. Airway patent. NECK: Trachea midline. No JVD. Supple. CARDIOVASCULAR: Regular rate and rhythm without murmurs, gallops, or rubs. RESPIRATORY: Good air entry. Right lower lobe expiratory wheeze minimal. GASTROINTESTINAL: Abdomen soft, non-tender, nondistended. Bowel Sounds normoactive x4. MUSCULOSKELETAL: Extremities without clubbing, cyanosis, or edema. Right knee incision site mild erythema, mild edema only on the incision site. No erythema and edema noted on the right below the knee extremity, no erythema and edema above the knee noted. NEUROLOGICAL: Awake and alert. Oriented to time, place, person. No focal neuro deficit. Moves all extremities. Normal speech. Procedures None A/P Problem List: (1) Cellulitis of right knee ICD Code: L03.115 - Cellulitis of right lower limb Status: Acute Assessment and Plan 52-year-old male with right lower extremity cellulitis admitted after failing outpatient treatment with Keflex. Patient has a history of significant alcohol use. Right lower extremity cellulitis, acute - Elevated ESR and CRP - No leukocytosis, no reported fever or chills - Blood cultures, no growth to date - Orthopedic surgery does not believe this is septic arthritis but more cellulitis, no surgical intervention at this moment, appreciate recommendations and assistance. - Pain control Ultram and PRN Toradol - Patient has received vancomycin and will discharged with Bactrim 12 days. Follow up with PCP recommended [facility] as patient is self-pay Alcohol abuse - [facility] protocol - Thiamine/multivitamins - Monitor for signs of DTs - No DTs noted. Patient was counseled Tobacco use - Patient was counseled, smokes 1 pack per day. VTE - Lovenox - Ambulating in room Discussed with patient, nursing, Dr. Viera Discharge Planning Plan to DC home today with Bactrim antibiotic. Discuss and explained with patient to follow-up with [facility]. Little Perez Jul 16, 2017 10:18
--- NOTE | 2017-07-16 10:18 | HHI.PR ---
Subjective Remarks Follow-up visit right knee cellulitis, right leg cellulitis. Patient seen and examined today sitting in a chair. States he has significantly improved, able To walk and ambulate in the room without using any devices. Patient states that when he came in initially he was using the crutches and the leg erythema is from the ankle all the way to his thigh. Now he reports it's only in the small incision site into his right knee. Patient states he is ready to be discharged home requesting to be discharged home today. Denies pain and discomfort. Denies SOB/ dyspnea. Denies chest pain, palpitations, headaches, dizziness. Denies fevers, chills, n/v/d. Objective Vitals Vital Signs Date Time Temp Pulse Resp B/P (MAP) Pulse Ox O2 Delivery O2 Flow Rate FiO2 07/16/17 08:03 97.6 88 20 122/78 (93) 97 07/16/17 04:00 97.8 76 18 113/72 (86) 97 07/15/17 20:00 98.4 77 18 119/77 (91) 96 07/15/17 17:06 98.0 84 20 119/82 (94) 96 07/15/17 12:13 98.0 77 20 148/82 (104) 96 I/O 07/15/17 07/15/17 07/15/17 07/16/17 07/16/17 07/16/17 07:00 15:00 23:00 07:00 15:00 23:00 Intake Total 611 ml 720 ml 611.2 ml Balance 611 ml 720 ml 611.2 ml Intake Oral 720 ml IV Total 611 ml 611.2 ml # Voids 3 3 # Bowel Movements 1 1 Result Diagram: 07/15/17 0834 07/16/17 0545 Imaging Last Impressions Knee X-Ray 07/14/17 0000 Signed Impressions: Service Date/Time: Friday, July 14, 2017 19:36 - CONCLUSION: Soft tissue swelling again seen. Jude Wyatt MD Objective Remarks GENERAL: This is a well-nourished, well-developed patient, in no apparent distress. SKIN: Warm and dry. HEENT: Normocephalic. Pupils equal round and reactive. Nose without bleeding. Airway patent. NECK: Trachea midline. No JVD. Supple. CARDIOVASCULAR: Regular rate and rhythm without murmurs, gallops, or rubs. RESPIRATORY: Good air entry. Right lower lobe expiratory wheeze minimal. GASTROINTESTINAL: Abdomen soft, non-tender, nondistended. Bowel Sounds normoactive x4. MUSCULOSKELETAL: Extremities without clubbing, cyanosis, or edema. Right knee incision site mild erythema, mild edema only on the incision site. No erythema and edema noted on the right below the knee extremity, no erythema and edema above the knee noted. NEUROLOGICAL: Awake and alert. Oriented to time, place, person. No focal neuro deficit. Moves all extremities. Normal speech. Procedures None A/P Problem List: (1) Cellulitis of right knee ICD Code: L03.115 - Cellulitis of right lower limb Status: Acute Assessment and Plan 52-year-old male with right lower extremity cellulitis admitted after failing outpatient treatment with Keflex. Patient has a history of significant alcohol use. Right lower extremity cellulitis, acute - Elevated ESR and CRP - No leukocytosis, no reported fever or chills - Blood cultures, no growth to date - Orthopedic surgery does not believe this is septic arthritis but more cellulitis, no surgical intervention at this moment, appreciate recommendations and assistance. - Pain control Ultram and PRN Toradol - Patient has received vancomycin and will discharged with Bactrim 12 days. Follow up with PCP recommended [facility] as patient is self-pay Alcohol abuse - [facility] protocol - Thiamine/multivitamins - Monitor for signs of DTs - No DTs noted. Patient was counseled Tobacco use - Patient was counseled, smokes 1 pack per day. VTE - Lovenox - Ambulating in room Discussed with patient, nursing, Dr. Viera Discharge Planning Plan to DC home today with Bactrim antibiotic. Discuss and explained with patient to follow-up with [facility]. [place] Perez Jul 16, 2017 10:18
--- NOTE | 2017-07-16 10:21 | HHI.DCPOC ---
Discharge Care Plan Diagnosis: (1) Cellulitis of right knee Your Health Problems Are: Difficulty with ADL Swelling Leg Swelling Goals to Promote Your Health * To prevent worsening of your condition and complications * To maintain your health at the optimal level Directions to Meet Your Goals Take your medications as prescribed Follow your dietary instruction Follow activity as directed Keep your appointments as scheduled Take your immunizations and boosters as scheduled If your symptoms worsen call your PCP, if no PCP go to Urgent Care Center or Emergency Room Smoking is Dangerous to Your Health. Avoid second hand smoke Call the 24-hour hour crisis hotline for domestic abuse at [place] [facility] Jul 16, 2017 10:21
--- NOTE | 2017-07-16 10:21 | HHI.DCPOC ---
Discharge Care Plan Diagnosis: (1) Cellulitis of right knee Your Health Problems Are: Difficulty with ADL Swelling Leg Swelling Goals to Promote Your Health * To prevent worsening of your condition and complications * To maintain your health at the optimal level Directions to Meet Your Goals Take your medications as prescribed Follow your dietary instruction Follow activity as directed Keep your appointments as scheduled Take your immunizations and boosters as scheduled If your symptoms worsen call your PCP, if no PCP go to Urgent Care Center or Emergency Room Smoking is Dangerous to Your Health. Avoid second hand smoke Call the 24-hour hour crisis hotline for domestic abuse at [place] [facility] Jul 16, 2017 10:21
--- NOTE | 2017-07-16 10:21 | HHI.DS ---
Discharge Summary Admission Date Jul 14, 2017 at 20:47 Discharge Date: Jul 16, 2017 Admitting Diagnosis right knee cellulitis failed outpatient therapy, lymphangitis (1) Cellulitis of right knee ICD Code: L03.115 - Cellulitis of right lower limb Status: Acute Procedures None Brief History - From Admission 52-year-old male presents to the emergency department with worsening right knee erythema and pain. 2 weeks ago, the patient had a mere fall on him and his knees were sliced bilaterally with the glass. The patient sought medical treatment where his knees were sutured and he was discharged to home. 2 days ago, the patient returned to the emergency department for an erythematous and tender right knee. He was given a prescription for Keflex and discharged to home. Despite compliance with the medication, the erythema of the patient's right knee continued to spread up his 5 and he became more tender. He has a very difficult time flexing the right knee and can only flex to approximately 30 . There is no associated fluctuance however the knee joint is swollen. He does not have leukocytosis and has been afebrile. CBC/BMP: 07/15/17 0834 07/16/17 0545 Significant Findings Laboratory Tests Test 07/14/17 18:30 07/15/17 08:34 07/16/17 05:45 Red Blood Count 4.22 MIL/MM3 (4.50-5.90) 4.38 MIL/MM3 (4.50-5.90) Hemoglobin 11.4 GM/DL (13.0-17.0) 11.6 GM/DL (13.0-17.0) Hematocrit 33.6 % (39.0-51.0) 35.9 % (39.0-51.0) Mean Corpuscular Volume 79.6 FL (80.0-100.0) Mean Corpuscular Hemoglobin 26.9 PG (27.0-34.0) 26.4 PG (27.0-34.0) Red Cell Distribution Width 17.5 % (11.6-17.2) 17.5 % (11.6-17.2) Erythrocyte Sedimentation Rate 42 mm/hr (0-20) Prothrombin Time 9.7 SEC (9.8-11.6) Blood Urea Nitrogen 6 MG/DL (7-18) Sodium Level 133 MEQ/L (136-145) C-Reactive Protein 11.00 MG/DL (0.00-0.30) Imaging Last Impressions Knee X-Ray 07/14/17 0000 Signed Impressions: Service Date/Time: Friday, July 14, 2017 19:36 - CONCLUSION: Soft tissue swelling again seen. Jude Wyatt MD PE at Discharge GENERAL: This is a well-nourished, well-developed patient, in no apparent distress. SKIN: Warm and dry. HEENT: Normocephalic. Pupils equal round and reactive. Nose without bleeding. Airway patent. NECK: Trachea midline. No JVD. Supple. CARDIOVASCULAR: Regular rate and rhythm without murmurs, gallops, or rubs. RESPIRATORY: Good air entry. Right lower lobe expiratory wheeze minimal. GASTROINTESTINAL: Abdomen soft, non-tender, nondistended. Bowel Sounds normoactive x4. MUSCULOSKELETAL: Extremities without clubbing, cyanosis, or edema. Right knee incision site mild erythema, mild edema only on the incision site. No erythema and edema noted on the right below the knee extremity, no erythema and edema above the knee noted. NEUROLOGICAL: Awake and alert. Oriented to time, place, person. No focal neuro deficit. Moves all extremities. Normal speech. Pt update on day of discharge Follow-up visit right knee cellulitis, right leg cellulitis. Patient seen and examined today sitting in a chair. States he has significantly improved, able To walk and ambulate in the room without using any devices. Patient states that when he came in initially he was using the crutches and the leg erythema is from the ankle all the way to his thigh. Now he reports it's only in the small incision site into his right knee. Patient states he is ready to be discharged home requesting to be discharged home today. Denies pain and discomfort. Denies SOB/ dyspnea. Denies chest pain, palpitations, headaches, dizziness. Denies fevers, chills, n/v/d. Hospital Course Patient is a 52-year-old male with right lower extremity cellulitis admitted to the hospital after failed treatment of Keflex. Patient was given vancomycin IV. He was seen by orthopedic surgery and does not believe that the patient had septic arthritis. No surgical intervention recommended at this time. Patient has no leukocytosis, blood cultures no growth to date, no reported fevers or chills. Pain management has been good with Ultram and when necessary Toradol. Patient is able to ambulate in the room without assistive device. There is no noted erythema or edema on his right lower extremity except for the incision site which has some mild erythema and edema. X-ray resulted showed soft tissue swelling. Clinically improved. Patient has met maximal benefits of hospitalization. Clinically stable for discharge. Patient requested to follow-up with [facility]. He will be discharged with Bactrim 12 days. Pt Condition on Discharge: Good Discharge Disposition: Discharge Home Discharge Time: <= 30 minutes Discharge Instructions DIET: Follow Instructions for: As Tolerated, No Restrictions Activities you can perform: Weight Bearing as Stephon Follow up Referrals: PCP Follow-up - 1 Week with [facility] New Medications: Sulfamethoxazole-Trimethoprim (Bactrim DS) 800-160 Mg Tab 1 TAB PO BID for Infection, #24 TAB 0 Refills Continued Medications: Tramadol (Ultram) 50 Mg Tab 50 MG PO Q4H PRN for PAIN, #12 TAB 0 Refills Discontinued Medications: Cephalexin (Keflex) 500 Mg Cap 500 MG PO Q8H for Infection, #30 CAP 0 Refills [place] Perez Jul 16, 2017 10:20
--- NOTE | 2017-07-16 10:21 | HHI.DCPOC ---
Discharge Care Plan Diagnosis: (1) Cellulitis of right knee Your Health Problems Are: Difficulty with ADL Swelling Leg Swelling Goals to Promote Your Health * To prevent worsening of your condition and complications * To maintain your health at the optimal level Directions to Meet Your Goals Take your medications as prescribed Follow your dietary instruction Follow activity as directed Keep your appointments as scheduled Take your immunizations and boosters as scheduled If your symptoms worsen call your PCP, if no PCP go to Urgent Care Center or Emergency Room Smoking is Dangerous to Your Health. Avoid second hand smoke Call the 24-hour hour crisis hotline for domestic abuse at [place] [facility] Jul 16, 2017 10:21
[2017-07-18] MEDS ORDERED: THIAMINE HCL 100 MG TAB PO SCH ×2 (09:00)
== END 2017-07-16 11:34 | disposition home or self-care (01) | DRG 603 ==
LOC: NEPD 15:37 → NEDA 20:35 → OBSVTOIN 20:47 → N05B 21:53
PROVIDERS: ADMIT Family Medicine; ATTEND Family Medicine
DX: L03.115 Cellulitis of right lower limb (principal); F10.10 Alcohol abuse, uncomplicated; F17.210 Nicotine dependence, cigarettes, uncomplicated; Z90.5 Acquired absence of kidney
CPT/HCPCS: 73564; 80048; 80053; 85025; 85610; 85652; 85730; 86140; 87040; 96365; 96366; 96375; 96376; J1200; J1650; J2270; J3370; J3411; J7040; J7050